=== PATIENT | male | born 1940 | race Caucasian/White ===

== ENCOUNTER 2016-08-16 11:32 | Emergency (ER) | payer MEDICARE, OTHER ==
[~2016-08-16] VITALS: Ht 182.9 cm; Wt 102.1 kg
--- NOTE | 2016-08-16 11:53 | PHYS DOC ---
General Chief Complaint: CHEST PAIN Stated Complaint: CHEST PAIN Time Seen by MD: 11:46 Source: patient, old records Exam Limitations: no limitations Problems: History of Present Illness Initial Comments For chest discomfort. Patient states for the past 5 days he's had midsternal chest pain described as mild to moderate, sharp and stabbing V, worse with certain movements and deep breaths relieved at rest. No arm or neck symptoms no diaphoresis nausea vomiting or difficulty breathing. Denies cough fever chills sweats or myalgias. Patient has history of coronary artery disease underwent four-vessel CABG 10 years ago. He follows regularly with Dr. Florez for cardiology. Symptoms are not consistent with prior chest pains no pre-arrival treatment. Timing/Duration: constant (5 days) Severity: moderate Modifying Factors: worse with movement, improves with rest Associated Symptoms: chest pain Allergies: Coded Allergies: No Known Drug Allergies (Unverified , 08/16/16) Past Medical History Medical History: other (coronary artery disease, BPH, atrial fibrillation, hyperlipidemia, GERD) Surgical History: coronary bypass surgery (4 vessels approximately 10 years ago ) Social History Smoker: quit greater than 1 year Alcohol: none Drugs: none Review of Systems Constitutional: denies chills, denies diaphoresis, denies fever, denies malaise , denies weakness Respiratory: see HPI, denies cough, denies orthopnea, denies shortness of breath, denies wheezing Cardiovascular: see HPI, chest pain, denies edema (cholesterol), denies palpitations, denies syncope Gastrointestinal: denies abdominal pain, denies diarrhea, denies nausea, denies vomiting Genitourinary: denies dysuria (.), denies frequency, denies hematuria Musculoskeletal: see HPI, denies back pain, denies joint swelling, denies neck pain Psychiatric/Neurological: denies headache, denies numbness, denies paresthesia Physical Exam General Appearance: WD/WN, no apparent distress Eyes: bilateral eye normal inspection, bilateral eye PERRL, bilateral eye EOMI Ear, Nose, Throat: hearing grossly normal, normal ENT inspection, normal pharynx Neck: non-tender, supple Respiratory: chest non-tender (chest pain nonreproducible with palpation), normal breath sounds, no respiratory distress Cardiovascular: normal peripheral pulses, bradycardia, other (1+ pitting lower extremity edema involving the lower legs) Gastrointestinal: non tender, soft Back: no CVA tenderness, no vertebral tenderness Extremities: normal range of motion, non-tender Neurologic/Psychiatric: 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 PHYSICIAN: NALLELY CORREA DO REASON: cp PROCEDURE: PORTABLE CHEST 1V Indication chest pain. A single view of the chest was obtained and is compared to an examination just over 7 years earlier. Postoperative changes are noted. The heart and pulmonary vessels are normal. The lungs are clear. There is no pleural fluid or pneumothorax. There has not been a significant change compared to the previous exam. IMPRESSION: No acute or focal process. No significant change DICTATED AND SIGNED BY: AV ARMENDARIZ MD DATE: 08/16/161218 CC: HERMINIO REEDER MD; NALLELY CORREA DO ~ PATIENT: MARYCHUY PLASCENCIA ACCOUNT: [id number] : 1940 LOCATION: ER AGE: 75 SEX: M EXAM STATUS: REG ER ORD. PHYSICIAN: NALLELY CORREA DO REASON: cp, elev d-dimer PROCEDURE: CT ANGIOGRAPHY CHEST Indication elevated d-dimer. Chest pain. Axial images through the chest were obtained. The examination was tailored for the detection of pulmonary embolus. MIP images were generated and reviewed. Approximately 75 cc of Omnipaque 300 was administered. Note is made of a previous CT examination of the chest 11/24/2007. Imaging through the upper abdomen is unremarkable. The thoracic aorta is not well opacified but grossly normal. The ascending thoracic aorta is at the upper limits of normal in size, 4 cm. No significant hilar or mediastinal adenopathy is seen. The study is negative for pulmonary embolus. No definite acute parenchymal infiltrate or dominant soft tissue mass is seen in the chest. There is some minimal volume loss in the right lower lobe likely reflecting atelectasis or scar. An inflammatory focus is not entirely excluded. IMPRESSION: No definite acute finding seen in the chest. Negative study for pulmonary embolus Minimal volume loss, likely reflecting atelectasis or scar, in the right lower lung field PQRS Compliance Statement: One or more of the following individualized dose reduction techniques were utilized for this examination: 1. Automated exposure control 2. Adjustment of the mA and/or kV according to patient size 3. Use of iterative reconstruction technique DICTATED AND SIGNED BY: AV ARMENDARIZ MD DATE: 08/16/16 1236 CC: HERMINIO REEDER MD; NALLELY CORREA DO ~ D-dimer 0.57 otherwise reassuring ED workup. I discussed findings with the patient as well as follow-up visit next week with primary care and cardiology. Patient expressed agreement and understanding of the treatment plan. Departure Time of Disposition: 13:11 Disposition: HOME, SELF-CARE Diagnosis: chest pain non-cardiac Condition: GOOD Patient Instructions: Chest Pain (Nonspecific), [id number] Additional Instructions: Activity as tolerated, keep activity to "pain free." [id number] Tylenol and/or ibuprofen as needed. Continue current medications. Contact your manager psychiatry Dr. Florez's office today to notify them of this emergency department visits and reschedule your upcoming cardiology appointment to next week. If you're unable to change that appointment follow-up with Dr. Reeder on Friday. Return to the ED with new or changing symptoms NALLELY CORREA DO Aug 16, 2016 11:53
[2016-08-16 11:59] LABS: BASO # 0.1 x10^3/uL (0.0-0.2); BASO % 1 % (0-3); EOS # 0.1 x10^3/uL (0.0-0.7); EOS % 1 % (0-3); HEMOGLOBIN 14.5 g/dL (13.0-17.5); LYMPH # 1.3 x10^3/uL (1.0-4.8); LYMPH % 18 % (24-48); MEAN CORPUSCULAR HEMOGLOBIN 30 pg (25-35); MEAN CORPUSCULAR HGB CONC 34 g/dL (31-37); MEAN CORPUSCULAR VOLUME 90 fL (79-100); MONO # 0.6 x10^3/uL (0.0-1.1); MONO % 8 % (0-9); NEUT # 5.2 x10^3uL (1.8-7.7); NEUT % 72 % (31-73); PLATELET COUNT 175 x10^3/uL (140-400); RED BLOOD COUNT 4.76 x10^6/uL (4.30-5.70); RED CELL DISTRIBUTION WIDTH 13.6 % (11.5-14.5); WHITE BLOOD COUNT 7.3 x10^3/uL (4.0-11.0)
[2016-08-16] MEDS ORDERED: NITROGLYCERIN SUBLINGUAL 0.4 MG BOTTLE OF 25. SL PRN (12:00)
[2016-08-16] MEDS ORDERED: MORPHINE SULFATE 4 MG/ML DISP.SYRIN. IV/SQ PRN (12:00)
[2016-08-16] MEDS ORDERED: ASPIRIN 81 MG TAB.CHEW PO ONE (12:15)
[2016-08-16 12:16] LABS: ALBUMIN/GLOBULIN RATIO 1.4 (1.0-1.7); CALCIUM 8.6 mg/dL (8.5-10.1); CREATININE 1.3 mg/dL (0.7-1.3); GFR 53.5; MAGNESIUM 2.2 mg/dL (1.8-2.4); POTASSIUM 4.3 mmol/L (3.5-5.1); TOTAL BILIRUBIN 1.2 mg/dL (0.2-1.0); TOTAL PROTEIN 6.8 g/dL (6.4-8.2)
--- NOTE | 2016-08-16 12:23 | RAD ---
Indication chest pain. A single view of the chest was obtained and is compared to an examination just over 7 years earlier. Postoperative changes are noted. The heart and pulmonary vessels are normal. The lungs are clear. There is no pleural fluid or pneumothorax. There has not been a significant change compared to the previous exam. IMPRESSION: No acute or focal process. No significant change
[2016-08-16 12:40] LABS: BILIRUBIN,URINE NEG (NEG); CLARITY,URINE HAZY; COLOR,URINE AMBER; GLUCOSE,URINE NEG (NEG); UROBILINOGEN,URINE 1 mg/dL (0.2 mg/dL)
[2016-08-16 12:41] LABS: BACTERIA,URINE FEW /HPF (0-FEW); NITRITE,URINE NEG (NEG); SQUAMOUS EPITHELIAL CELL,UR OCC /LPF; WBC,URINE OCC /HPF (0-4)
[2016-08-16] MEDS ORDERED: IOHEXOL 300 MG/ML 75 ML VIAL. IV ONE (12:45)
[2016-08-16] MEDS ORDERED: CONTRAST GIVEN MC PRN (12:45)
--- NOTE | 2016-08-16 13:01 | RAD ---
Indication elevated d-dimer. Chest pain. Axial images through the chest were obtained. The examination was tailored for the detection of pulmonary embolus. MIP images were generated and reviewed. Approximately 75 cc of Omnipaque 300 was administered. Note is made of a previous CT examination of the chest 11/24/2007. Imaging through the upper abdomen is unremarkable. The thoracic aorta is not well opacified but grossly normal. The ascending thoracic aorta is at the upper limits of normal in size, 4 cm. No significant hilar or mediastinal adenopathy is seen. The study is negative for pulmonary embolus. No definite acute parenchymal infiltrate or dominant soft tissue mass is seen in the chest. There is some minimal volume loss in the right lower lobe likely reflecting atelectasis or scar. An inflammatory focus is not entirely excluded. IMPRESSION: No definite acute finding seen in the chest. Negative study for pulmonary embolus Minimal volume loss, likely reflecting atelectasis or scar, in the right lower lung field PQRS Compliance Statement: One or more of the following individualized dose reduction techniques were utilized for this examination: 1. Automated exposure control 2. Adjustment of the mA and/or kV according to patient size 3. Use of iterative reconstruction technique
[2016-08-16 13:07] VITALS: BP 109/56
--- NOTE | 2016-08-16 18:45 | EKG ---
[address] [address] Test Date: 2016-08-16 Test Time: 11:47:27 Pat Name: MARYCHUY PLASCENCIA Department: Room: Gender: M [employer] Helper: : 1940 Requested By: NALLELY CORREA Order Number: [id number] Reading MD: Dez Beltran Measurements Intervals [place] Rate: 58 P: 37 NM: 180 QRS: -12 QRSD: 104 T: 12 QT: 482 QTc: 477 Interpretive Statements SINUS RHYTHM LEFTWARD AXIS QRS(T) CONTOUR ABNORMALITY CANNOT RULE OUT ANTEROSEPTAL MYOCARDIAL DAMAGE PROLONGED QT RI6.01 Unconfirmed report No previous ECG available for comparison Electronically Signed On 08-21-2016 9:30:33 CDT by Dez Beltran
== END 2016-08-16 13:16 | disposition home or self-care (01) ==
LOC: ER 11:32
DX: R07.89 Other chest pain (principal); N40.0 Benign prostatic hyperplasia without lower urinary tract symptoms; I48.91 Unspecified atrial fibrillation; I25.810 Atherosclerosis of coronary artery bypass graft(s) without angina pectoris; K21.9 Gastro-esophageal reflux disease without esophagitis; E78.5 Hyperlipidemia, unspecified; Z87.891 Personal history of nicotine dependence
CPT/HCPCS: 36415; 71010; 71275; 80053; 81001; 82550; 83690; 83735; 83880; 84484; 85027; 85379; 85610; 85730; 86140; 93005; 99285; Q9967

== ENCOUNTER → 2018-10-27 | Outpatient (CLI) | payer MEDICARE, OTHER ==
[~2018-10-27] MED LIST: ASPI325T8 PO; CRESTOR40 MG PO; EZET10TA18 PO; FINA5TAB PO; OMEP20CA10 PO; SOTA80TA20 PO
--- NOTE | 2018-10-27 10:50 | RAD ---
Ultrasound evaluation of the abdominal aorta 10/27/2018 INDICATION: Abdominal aortic aneurysm screening COMPARISON STUDY: None Discussion: Ultrasound evaluation of the abdominal aorta was performed. Static images are submitted to PACS. Proximal abdominal aorta measures 2.5 cm in diameter. Mid abdominal aorta measures 2.1 cm in diameter. Distal abdominal aorta measures up to 2.5 cm in diameter. On prior exam maximal diameter of the distal abdominal aorta was 1.9 cm. Visualized portions of the common iliac arteries are unremarkable. IMPRESSION: No evidence of abdominal aortic aneurysm is identified. Mild increase in aortic diameter in the interim since comparison study. Consider continued surveillance. Electronically signed by: Jose Jones MD (10/27/2018 10:46 AM) [id number]
== END | disposition home or self-care (01) ==
LOC: US 08:36
PROVIDERS: ATTEND Specialist
DX: Z13.6 Encounter for screening for cardiovascular disorders (principal)
CPT/HCPCS: 76770

== ENCOUNTER → 2018-11-04 | Outpatient (CLI) | payer MEDICARE, OTHER ==
[~2018-11-04] MED LIST changes: -EZET10TA18 PO; +EZET10TA20 PO
--- NOTE | 2018-11-04 15:12 | RAD ---
EXAM: Dual energy x-ray absorptiometry (DEXA). HISTORY: Osteoporosis screening. COMPARISON: None. TECHNIQUE: Dual energy x-ray absorptiometry of the lumbar spine and right hip was performed. Calculation of bone mineral density based on standard deviations above or below the expected young adult normal value (T-score) was completed. FINDINGS: The average bone mineral density in the 1st through 4th lumbar vertebrae is 1.539 g/cmxcm, corresponding with a T-score of 2.7. The average total bone mineral density in the right hip is 0.996 g/cmxcm, corresponding with a T-score of -0.4. IMPRESSION: Normal bone mineral density. Note: Definitions established by the World Health Organization: 1. Normal: T-score is -1.0 or above. 2. Osteopenia: T-score is between -1.0 and -2.5 . 3. Osteoporosis: T-score is -2.5 or below. Electronically signed by: Tiana Banda MD (11/04/2018 3:09 PM) [id number]
== END | disposition home or self-care (01) ==
LOC: DXRAD 14:23
PROVIDERS: ATTEND Specialist
DX: R29.890 Loss of height (principal)
CPT/HCPCS: 77080

== ENCOUNTER → 2020-07-04 | Outpatient (CLI) | payer MEDICARE, OTHER ==
[~2020-07-04] MED LIST changes: -OMEP20CA10 PO; +OMEP20CA16 PO
--- NOTE | 2020-07-04 10:56 | RAD ---
EXAM: CAROTID DOPPLER SONOGRAM. HISTORY: Smoking history, myocardial infarction, carotid stenosis. TECHNIQUE: [place] scale and color Doppler sonographic evaluation of the neck with spectral waveform summer lysis was performed and static images are submitted for review. FINDINGS: RIGHT: The peak systolic velocity within the common carotid artery is 86 cm/sec. The peak systolic ve locity within the internal carotid artery is 86 cm/sec and the end diastolic velocity within the inte rnal carotid artery is 25 cm/sec. The ICA/CCA ratio is 1.0. Grayscale images demonstrate mild plaquin g without grayscale stenosis. LEFT: The peak systolic velocity within the common carotid artery is 97 cm/sec. The peak systolic thomas ocity within the internal carotid artery is 86 cm/sec and the end diastolic velocity within the inter nal carotid artery is 28 cm/sec. The ICA/CCA ratio is 0.9. Grayscale images demonstrate mild plaquing without grayscale stenosis. There is antegrade flow within both vertebral arteries. IMPRESSION: 1. No evidence of hemodynamically significant stenosis. PQRS Compliance Statement - Stenosis calculations for CT, MR and conventional angiography are based u nate measurement of the distal ICA diameter in accordance with the NASCET methodology. Stenosis calcu lations for carotid ultrasound studies are derived from validated velocity criteria which are known t o correlate with the NASCET methodology. Electronically signed by: Lamar Morales MD (07/04/2020 10:53 AM) [id number]
== END ==
LOC: US 09:50
PROVIDERS: ATTEND Specialist
DX: I65.23 Occlusion and stenosis of bilateral carotid arteries (principal)
CPT/HCPCS: 93880

== ENCOUNTER → 2021-08-08 | Outpatient (CLI) | payer MEDICARE, OTHER ==
--- NOTE | 2021-08-08 15:42 | RAD ---
EXAM: ULTRASOUND ABDOMINAL AORTA. CLINICAL HISTORY: Reason: ATHEROSCLEROSIS OF AORTA; HX OF SMOKING X25 COMPARISON: None available. TECHNIQUE: The abdominal aorta was examined from the diaphragm to the proximal common iliac arteries. FINDINGS: There is diffuse atherosclerotic vascular disease. The proximal abdominal aorta measures 2.9 cm in AP dimension. The mid abdominal aorta measures 2.4 cm in AP dimension. The distal abdominal aorta measures 2 cm in AP dimension. The right common iliac artery measures 1.5 cm . . The left common iliac artery measures 1.3 in diameter. IMPRESSION: Diffuse atherosclerotic vascular disease without evidence abdominal aortic aneurysm Recommended imaging follow-up intervals for enlarged infrarenal abdominal aorta: Less than 2.5 cm: 5-year interval 3.0-3.4 cm: 3-year interval 3.5-3.9 cm: 2-year interval 4.0-4.4 cm: 1-year interval 4.5-4.9 cm: 6-month interval, vascular surgery consultation 5.0-5.5 cm: Vascular surgery consultation Electronically signed by: Jose Jones MD (08/08/2021 3:40 PM) [id number]
== END ==
LOC: US 07:50
PROVIDERS: ATTEND Specialist
DX: I70.0 Atherosclerosis of aorta (principal)
CPT/HCPCS: 76770